=== PATIENT | female | born 1990 | race African-American/Black ===

== ENCOUNTER 2020-11-20 18:15 | Emergency (ER) | payer MEDICAID ==
[~2020-11-20] VITALS: Ht 154.9 cm; Wt 127.0 kg
[2020-11-20] MEDS ORDERED: KETOROLAC 30MG/ML VIAL IV STA (18:39)
[2020-11-20] MEDS ORDERED: MAGNESIUM/ALUMINUM HYDROXIDE/SIMETHICONE 30ML UDC PO STA (18:39)
[2020-11-20] MEDS ORDERED: ONDANSETRON HCL 4MG/2ML INJ IV STA (18:39)
[2020-11-20] MEDS ORDERED: SODIUM CHLORIDE 0.9% 1,000 ML IV ONE (18:45)
[2020-11-20 19:04] LABS: BASOPHILS % 0.3 % (0.0-2.0); EOSINOPHILS % 0.6 % (0.0-5.0); HEMATOCRIT. 39.3 % (36.0-48.0); HEMOGLOBIN. 12.6 g/dL (12.0-16.0); LYMPHOCYTES % 18.3 % (20.0-50.0); MEAN CORPUSCULAR HEMOGLOBIN 26.4 pg (28.0-32.0); MEAN CORPUSCULAR VOLUME 82.3 fL (81.0-99.0); MEAN PLATELET VOLUME 7.9 fl (7.4-10.4); MONOCYTES % 4.8 % (2.0-8.0); PLATELET 333 x1000/uL (130-400); RED BLOOD CELL COUNT 4.77 mill/uL (4.2-5.4)
[2020-11-20 19:08] LABS: CHLORIDE 110 mEq/L (98-107)
[2020-11-20 19:15] LABS: PROTHROMBIN TIME 10.9 sec (9.6-11.0)
[2020-11-20 19:18] LABS: HCG SCREEN NEGATIVE
[2020-11-20 20:21] LABS: CLARITY URINE CLOUDY (CLEAR); COLOR URINE YELLOW (YELLOW); KETONES URINE NEGATIVE (NEGATIVE); LEUKOCYTE ESTERASE URINE NEGATIVE (NEGATIVE); NITRITE URINE NEGATIVE (NEGATIVE); OCCULT BLOOD URINE NEGATIVE (NEGATIVE); PH URINE 7.5 (4.5-8.0); PROTEIN URINE NEGATIVE (NEGATIVE); SPECIFIC GRAVITY URINE 1.016 (1.005-1.030)
[2020-11-20] MEDS ORDERED: IBUP-2029 MT (22:43)
[2020-11-20 23:00] VITALS: BP 137/89
== END 2020-11-20 23:04 | disposition home or self-care (01) ==
LOC: ER 18:15
DX: R10.31 Right lower quadrant pain (principal); R10.32 Left lower quadrant pain; J45.909 Unspecified asthma, uncomplicated; Z79.899 Other long term (current) drug therapy
CPT/HCPCS: 36415; 74176; 80053; 81003; 83690; 84703; 85025; 85610; 93005; 96361; 96374; 96375; 99285; J1885; J2405; J7030; Z7610

== ENCOUNTER 2022-09-23 18:06 | Emergency (ER) | payer MEDICAID, MEDICARE ==
[~2022-09-23] VITALS: Ht 170.2 cm; Wt 137.0 kg
[~2022-09-23 18:06] MED LIST: IBUP-2029 MT
[2022-09-23 18:15] VITALS: BP 160/90
[2022-09-23] MEDS ORDERED: IBUPROFEN 600MG TABLET PO ONE (19:45)
[2022-09-23] MEDS ORDERED: IBUP-2029 MT (21:47)
== END 2022-09-23 22:56 | disposition home or self-care (01) ==
LOC: ER 18:06
DX: S93.401A Sprain of unspecified ligament of right ankle, initial encounter (principal); J45.909 Unspecified asthma, uncomplicated; Z98.890 Other specified postprocedural states; W01.0XXA Fall on same level from slipping, tripping and stumbling without subsequent striking against object, initial encounter; Y93.89 Activity, other specified; Y92.89 Other specified places as the place of occurrence of the external cause; Y99.8 Other external cause status
CPT/HCPCS: 73610; 99283; Z7610